=== PATIENT | male | born 1975 | race American Indian/Alaskan Native ===

== ENCOUNTER → 2017-12-18 | Outpatient (CLI) | payer BC | LOC: RESP 06:47 | PROVIDERS: ATTEND Physician Assistant Medical | DX: R07.9 Chest pain, unspecified (principal); R03.0 Elevated blood-pressure reading, without diagnosis of hypertension | CPT/HCPCS: 93017 ==

== ENCOUNTER → 2018-01-07 | Outpatient (CLI) | payer BC ==
[~2018-01-07] MED LIST: REGADENOSON 0.4 MG/5 ML SYR ONE
--- NOTE | 2018-01-07 16:23 | RT STRESS TEST REPORT ---
FACILITY: [facility] - [place] PATIENT NAME: JAQUELINE ALICEA : [id number] MR: [id number] V: [id number] EXAM DATE: ORDERING PHYSICIAN: HILDA ROGER TECHNOLOGIST: Bindu Acquisition Time: 2018-01-07 14:12:14 Total Exercise Time: 00:01:00 Test Indications: Chest Discomfort Medications: SEE NUCLEAR MED SHEET Protocol: LEXISCAN Max HR: 104 BPM 58% of Pred: 178 BPM Max BP: 149/086 mmHG Max Work Load: 1.0 METS Confirmed by CHALINO CAIN ([id number]) on 01/07/2018 4:22:05 PM Referred By: Overread By: CHALINO CAIN
--- NOTE | 2018-01-07 16:42 | RADIOLOGY IMAGING REPORT ---
FACILITY: [facility] - [place] PATIENT NAME: Velasquez Aguayo : 1975 MR: [id number] V: [id number] EXAM DATE: ORDERING PHYSICIAN: HILDA ROGER TECHNOLOGIST: Location: [facility] - [place] Patient: Velasquez Aguayo : 1975 Visit/Account:[id number] Date of Sevice: 01/07/2018 EXAMINATION: Single isotope SPECT imaging with regadenoson infusion and gated SPECT imaging. DATE OF EXAMINATION: 01/07/18. DATE OF INTERPRETATION: 01/07/18. REQUESTING PHYSICIAN: HILDA ROGER. INDICATION: The patient is a 53-year-old M evaluated for chest pain. PROCEDURE: After informed consent the patient received an intravenous injection of 11.5 mCi of Tc-99 m sestamibi followed at an appropriate time interval by rest imaging. The patient then subsequently received an intravenous infusion of 0.4 mg of regadenoson per protocol without complication. Resting heart rate was 61 bpm with a peak heart rate of 104 bpm. Blood pressure at rest was 144 / 95 and fo llowing infusion was 149 / 86. Baseline EKG demonstrates sinus rhythm. There were no EKG changes of ischemia following infusion. Symptoms were nonspecific. The patient then received an intravenous i njection of 29.5 mCi of Tc-99m sestamibi followed by stress imaging. RAW DATA: Examination of the summed raw data revealed a good quality study. MYOCARDIAL PERFUSION: The tomographic images demonstrate normal myocardial perfusion with no evidenc e of infarct or ischemia. There is no TID. GATED IMAGES: The gated images demonstrate normal ejection fraction 70% with normal wall motion and thickening. IMPRESSION: 1. Nondiagnostic Lexiscan stress ECG 2. Normal myocardial perfusion scan. 3. Normal LV systolic function; LVEF 70%. 4. Based on the results of this exam, the patient appears to be at low risk for future cardiovascular events. Report Dictated By: Reji Ballard at 01/07/2018 4:34 PM Report E-Signed By: Reji Ballard at 01/07/2018 4:38 PM WSN:[id number]
== END ==
LOC: RESP 01:05
PROVIDERS: ATTEND Physician Assistant Medical
DX: R07.9 Chest pain, unspecified (principal)
CPT/HCPCS: 78452; 93017; A9500; J2785

== ENCOUNTER → 2018-10-09 | Outpatient (REF) | payer BC | LOC: ZZSENDIN 16:45 | PROVIDERS: ATTEND Physician Assistant | DX: R10.817 Generalized abdominal tenderness (principal); R10.814 Left lower quadrant abdominal tenderness | CPT/HCPCS: 82040; 82247; 82310; 82374; 82435; 82565; 82947; 84075; 84132; 84155; 84295; 84450; 84460; 84520 ==